=== PATIENT | female | born 1970 | race Caucasian/White ===

== ENCOUNTER 2025-05-21 16:26 | Outpatient (REF) | payer MEDICAID, SELFPAY ==
[2025-05-22 09:14] LABS: Chlamydia pneumoniae PCR Not Detected (Not Detect.); Coronavirus 229E PCR Not Detected (Not Detect.); Coronavirus HKU1 PCR Not Detected (Not Detect.); Coronavirus NL63 PCR Not Detected (Not Detect.); Coronavirus OC43 PCR Not Detected (Not Detect.); RSV PCR Not Detected (Not Detect.); Rhino/Enterovirus PCR Not Detected (Not Detect.)
[2025-05-22 12:16] LABS: Influenza A H1 PCR Not Detected (Not Detect.); Influenza A H1-2009 PCR Not Detected (Not Detect.); Influenza A H3 PCR Not Detected (Not Detect.); SARS-CoV-2 PCR Not Detected (Not Detect.)
== END 2025-05-21 16:27 | disposition home or self-care (01) ==
LOC: HO.CHCLNP 16:26
PROVIDERS: Visit Provider Family Medicine
DX: J06.9 Acute upper respiratory infection, unspecified (principal)
CPT/HCPCS: 87633

== ENCOUNTER 2025-06-07 14:05 | Outpatient (AMB) | payer MEDICAID, SELFPAY ==
--- NOTE | 2025-06-07 14:20 | A.OFFVIS_ITS ---
Intake Visit Reasons: 3m/Med review (set)UA+PVR) Intake Note: 55 year old Female presents today for a 3 month medication review last PVR:35 ml TODAY PVR: Still taking Oxybutynin Allergies No Known Allergies (No Known Allergies*) Allergy (Verified 05/22/25 09:16) HPI Comments Details: 06/07/2025--Ghazal is here for follow-up she has been evaluated for hematuria. Workup was notable for kidney stones, right renal calculi on renal ultrasound. The patient also has overactive bladder symptoms. She is on oxybutynin 15 mg daily. Alternative treatment options have been discussed with the patient including Botox management. 01/08/25--here for office cystoscopy. History of microscopic hematuria, and overactive bladder symptoms Cystoscopy findings: bladder wall thickening, no suspicious bladder lesions visualized Pelvic exam-no significant prolapse noted. No leakage with Valsalva. Results:renal US 01/01/25-- right renal calculi, x2 --3 mm,and 2mm Plan--- Botox injections in the bladder were discussed. I have discussed risks to include hematuria, UTI, urinary retention, need to repeat procedure for sustained efficacy. Patient wants to trial an increase in the oxybutynin. Oxybutynin 15 mg sent to the pharmacy. Follow-up in a few months to re-evaluate urinary symptoms. - Renal stones will be monitored, with no immediate intervention necessary. - Skin irritation to be addressed by using protective measures. 11/09/24--The patient is a 54-year-old female presenting with urinary incontinence and bladder spasms. She has been experiencing nocturnal urinary frequency, around three to four times nightly, accompanied by an urgent need to urinate. Bladder control becomes particularly challenging when she forgets to take her oxybutynin. Despite current management, she continues to experience ur gency and frequent episodes of incontinence. Symptoms such as a sudden urge to urinate with little warning and episodes of urine gushing are prevalent. 07/09/23--Ghazal is a 53 year old female. She has been evaluated and treated in the past by Dr. Banuelos for microscopic hematuria and irritative voiding symptoms. She was prescribed oxybutynin 10 mg XL daily which she states has helped and since she has been off of the medication her bladder leakage has worsened. Pt is on daily HCTZ. She has been off of prophlaxatic abx for over a year and denies UTI symptoms Microscopic hematuria evaluation 2018 Cytology negative Cystoscopy with biopsy negative - patchy cystitis Imaging negative Associated conditions smoking, denies work place exposure Urinary incontinence Some degree of resolution with treatment for recurrent UTI Combination oxybutynin with trimethoprim 2020 Baseline treatment now oxybutynin, Plan: 07/19/23--Oxybutynin 10 mg ER daily. FU one year [facility] Medical History (Updated 05/22/25 @ 09:16 by Nelsy Nettles) Hypercholesterolemia Cervical stenosis (uterine cervix) Fibromyalgia Vitamin D deficiency Stress incontinence Urgency incontinence Surgical History (Updated 05/22/25 @ 09:16 by Nelsy Nettles) History of surgery Office Procedures Post Void Residual Post Residual Void Post Void Residual (PVR): 0 [id number] Void Residual by ultrasound Results AMB Urinalysis, Automated UA Leukoctes 0 Stella/uL Last Edit by Sahara Weiss [facility] on 06/07/25 14:38 UA Nitrite Negative Last Edit by Sahara Weiss [facility] on 06/07/25 14:38 UA Urobilinogen 0.2 mg/dL Last Edit by Sahara Weiss A on 06/07/25 14:3 8 UA Protein 15 mg/dL Last Edit by Sahara Weiss [facility] on 06/07/25 14:38 UA pH 6.5 Last Edit by Sahara Weiss [facility] on 06/07/25 14:38 UA Blood 0 Baron/uL Last Edit by Sahara Weiss [facility] on 06/07/25 14:38 UA Specific [place] 1.015 Last Edit by Sahara Weiss [facility] on 06/07/25 14: 38 UA Ketone Negative Last Edit by Sahara Weiss A on 06/07/25 14:38 UA Bilirubin 0 mg/dL Last Edit by Sahara Weiss [facility] on 06/07/25 14:38 UA Glucose 0 mg/dL Last Edit by Sahara Weiss [facility] on 06/07/25 14:38 Results Reviewed Results Reviewed: Laboratory Last Values Urine pH (Auto) 6.5 06/07/25 14:37 Specific [place] (Auto) 1.015 06/07/25 14:37 Urine Protein (Auto) 15 mg/dL 06/07/25 14:37 Glucose (UA)(Auto) 0 mg/dL 06/07/25 14:37 Urine Ketones (Auto) Negative 06/07/25 14:37 Urine Blood (Auto) 0 Baron/uL 06/07/25 14:37 Urine Nitrite (Auto) Negative 06/07/25 14:37 Urine Bilirubin (Auto) 0 mg/dL 06/07/25 14:37 Urine Urobilinogen (Auto) 0.2 mg/dL 06/07/25 14:37 Leukocyte Esterase (Auto) 0 Stella/uL 06/07/25 14:37 Assessment & Plan Assessment & Plan Orders: Orders AMB Post Void Residual by ultrasound Today N39.41 - Urge incontinence AMB Urinalysis Automated Today Z13.9 - Encounter for screening, unspecified Coding CPT Codes Post Residual Void - PVR CPT Code: [id number] Void Residual by ultrasound ([id number])
--- OUTSIDE RECORDS SUMMARY | 2025-06-07 18:19 | XMS_ITS | Encounter Summary ---
Author Organization [employer] Address [address] [place] [address] Care Team Providers Care Conveyancer Name Role Phone Roxanne Teresa MD Primary Care Provider [phone] Valarie Atkins CNP Primary Care Provider [phone] Reason for Visit * Reason Onset Date Comments Nurse Triage 11/29/2024 Encounter Details Date Type Department Care Team ([facility] st Contact Info) Description 11/29/2024 Telephone [facility] [address] [place] [address] Roxanne Teresa MD [address] [place] [address] Nurse Triage Social History Tobacco Use Types Packs/Day Years Used Date Smoking Tobacco: Some Days Cigarettes Passive Smoke Exposure: Past Smokeless Tobacco: Never Alcohol Use Standard Drinks/Week Comments Not Currently 0 (1 standard drink = 0.6 oz pur e alcohol) Housing Stability Answer Date Recorded What is your housing situation today? I have silvana saucedo 10/11/[address] you li ve. Do you have problems with any of the following? None of the above 10/11/2024 Food Insecurity Answer Date Recorded Within the past 12 months, y ou worried that your food would run out before you got money to buy more: Never True 10/11/2024 Within the past 12 months,th e food you bought just didn't last and you didn't have enough money to get more: Never True Transportation Answer Date Recorded In the past 12 months, has l ack of transportation kept you from medical appts, meetings, work or from getting things needed for daily living? No 10/11/2024 Utilities Answer Date Recorded In the past 12 months, has t he electric, gas, oil or water company threatened to shut off services in your home? No 10/11/2024 Internet Access Answer Date Recorded Internet Access Q1 No 10/11/2024 Internet Access Q2 I do not want or need it 09/20 Comments No Sex and Gender Information Value Date Recorded Sex Assigned at Female 04/04/2024 11:59 AM EDT Legal Sex Female 11:49 AM EDT Gender Identity Female 04/04/2024 11:59 AM EDT Sexual Orientation Choose not to disclose 2023 11:59 AM EDT documented as of this encounter Miscellaneous Notes * Telephone Encounter - Yesenia Babb RN - 11/29/2024 9:10 AM EDT Triage call Pt reports driving to [place] 11/25/24 and started to have moderate low back pain. Pt is concerned that this could indicate a UTI. Pt doesn't have any other symptoms indicating this and hasdx of fibromyalgia so is questioning what is the source of the back pain. Pt has taken muscle relaxer medication as prescribed, aspercream and other topical analgesics as well as tylenol arthritis without relief. Pt denies back injury or heavy lifting. ASK apt in [facility] today at 1120am to rule outUTI. Pt agrees with this disposition. Pt is encouraged to increase liquid intake . Insurance is verified as active prior to booking. Protocol Used: Urinary Symptoms (Adult) Protocol-Based Disposition: See in Office or Video Visit Today or Tomorrow Video visit not offered Positive Triage Question: * Patient wants to be seen * All higher-acuity triage questions were negative Care Advice Discussed: * Reasons To Call Back - Fever occurs - Pain or burning with urination - You become worse * Telephone Encounter - Erik Hugo - 11/29/2024 8:57 AM EDT Symptom: Back Pain - Not From Injury Outcome: Schedule an urgent appointment (within 1 hour) or talk to a nurse or provider soon Reason: Weakness of the groin area Please contact pt at [phone]. documented in this encounter Plan of Treatment Upcoming Encounters Date Type Department Care Team (Late st Contact Info) Description 07/18/2025 9:30 AM EST Office Visit [facility] MED & PEDS [address] [place] [address] Valarie Atkins CNP [address] [place] [address] documented as of this encounter Visit Diagnoses Not on filedocumented in this encounter Care Teams Conveyancer Relationship Specialty Start Date End Date Roxanne Teresa MD [address] [place] [address] PCP - General Family Medicine 10/11/24 04/16/25 Valarie Atkins CNP [address] [place] [address] PCP - General Family Medicine 04/17/25 documented as of this encounter
--- OUTSIDE RECORDS SUMMARY | 2025-06-07 18:19 | XMS_ITS | Encounter Summary ---
Author Organization [employer] Address [address] [place] [address] Care Team Providers Care Appliance Servicer Name Role Phone Valarie Atkins AFUA Primary Care Provider [phone] Encounter Details Date Type Department Care Team ([facility] Contact Info) Description 04/17/2025 Orders Only [facility] MED & PEDS [address] [place], [place] [id number] Roxanne Teresa MD [address] [place] [address] Social History Tobacco Use Types Packs/Day Years Used Date Smoking Tobacco: Some Days Cigarettes Passive Smoke Exposure: Past Smokeless Tobacco: Never Alcohol Use Standard Drinks/Week Comments Not Currently 0 (1 standard drink = 0.6 oz pur e alcohol) Depression Answer Date Recorded Patient Health Questionnaire-9 Score 2 03/30/2025 Patient Health Questionnaire-9 Score 2 03/30/2025 Last PHQ-9: Questionnaire Data Not on file 1 Housing Stability Answer Date Recorded What is [...] off services in your home? No 10/11/2024 Depression Answer Date Recorded Patient Health Questionnaire-2 Score 2 03/30/2025 Internet Access Answer Date Recorded Internet Access [...] AM EDT documented as of this encounter Plan of Treatment Upcoming Encounters Date Type Department Care Team (Late st Contact Info) Description 07/18/2025 9:30 AM EST Office Visit [facility] MED & PEDS [address] [place] [address] Valarie Atkins CNP [address] [place] [address] documented as of this encounter Visit Diagnoses Not on filedocumented in this encounter Additional Health Concerns Assessment Noted Time PHQ-9 Depression Total Score: 2 03/30/20 25 9:05 AM EDT documented as of this encounter Care Teams Appliance Servicer Relationship Specialty Start Date End Date Valarie Atkins CNP [address] [place] [address] PCP - General Family Medicine 04/17/25 documented as of this encounter
--- OUTSIDE RECORDS SUMMARY | 2025-06-07 18:19 | XMS_ITS | Encounter Summary ---
Author Organization [employer] Address [address] [place] [address] Care Team Providers Care Rework Machine Operator Name Role Phone Valarie Atkins AFUA Primary Care Provider [phone] Encounter Details Date Type Department Care Team ([facility] Contact Info) Description 05/23/2025 Results Follow-Up [facility] MED & PEDS [address] [place] [address] Jelly Naranjo MD [address] [place] [address] Respiratory Viral Panel PCR, POCT Rapid Influenza B OSOM, POCT Rapid Influenza A OSOM, POCT Rapid Covid-19 [employer] Social History Tobacco Use Types Packs/Day Years [...] Description 07/18/2025 9:30 AM EST Office Visit [facility] MED & PEDS [address] [place] [address] Valarie Atkins CNP [address] [place] [address] documented as of this encounter Visit Diagnoses Not on filedocumented in this encounter Additional Health Concerns Assessment Noted Time PHQ-9 Depression Total Score: 2 03/30/20 9:05 AM EDT documented as of this encounter Care Teams Rework Machine Operator Relationship Specialty Start Date End Date Valarie Atkins CNP [address] [place] [address] PCP - General Family Medicine 04/17/25 documented as of this encounter
--- OUTSIDE RECORDS SUMMARY | 2025-06-07 18:19 | XMS_ITS | Encounter Summary ---
Author Organization [employer] Address [address] [place] [address] Care Team Providers Care Station Worker Name Role Phone Roxanne Teresa MD Primary Care Provider [phone] Valarie Atkins CNP Primary Care Provider [phone] Reason for Visit * Reason Onset Date Comments Medication Question 04/16/2025 Encounter Details Date Type Department Care Team ([facility] Contact Info) Description 04/16/2025 Telephone [facility] MED & PEDS [address] [place], [place] [phone] Roxanne Teresa MD [address] [place] [address] Medication Question Social History Tobacco Use Types Packs/Day Years [...] encounter Miscellaneous Notes * Telephone Encounter - Toma Cordon RN - 04/17/2025 12:02 PM EDT Called pt regarding new orders from PCP as requested and was unable to reach. Left message to call back. * Telephone Encounter - Roxanne Teresa MD - 04/17/2025 9:05 AM EDT Discontinue Lyrica Duloxetine changed to 60mg daily Pt to be seen by New PCP to discuss further management * Telephone Encounter - Toma Cordon RN - 04/16/2025 2:56 PM EDT Called pt regarding message, spoke to pt. Pt states had a TC appointment with PCP on 03/30 during which they discussed medications. It was not pt's understanding that the Lyrica would be ordered again as in the past it did not work well for her. Pt states before the Lyrica, used Duloxetine with good effect which decreased over time. Pt does not want the Lyrica and wants a higher dose of the Duloxetine. Will task to PCP for recommendations. Also, pt wants to know who her new PCP will be and advised we are in the process of assigning new PCP's. Pt understands and agrees with plan. * Telephone Encounter - Wood Pardo - 04/16/2025 2:18 PM EDT Tc from pt reporting that she was received lyrica as a new medication but was on it 6 years ago. Duloxetine before being on Pregablin and pt feels like it is a step backwards. Contact pt at [phone] documented in this encounter Plan of Treatment Upcoming Encounters Date Type Department Care Team ([facility] st Contact Info) Description 07/18/2025 9:30 AM EST Office Visit [facility] MED & PEDS [address] [place] [address] Valarie Atkins CNP [address] [place] [address] documented as of this encounter Visit Diagnoses Not on filedocumented in this encounter Additional Health Concerns Assessment Noted Time PHQ-9 Depression Total Score: 2 03/30/20 9:05 AM EDT documented as of this encounter Care Teams Station Worker Relationship Specialty Start Date End Date Roxanne Teresa MD [address] [place] [address] PCP - General Family Medicine 10/11/24 04/16/25 Valarie Atkins CNP [address] [place] [address] PCP - General Family Medicine 04/17/25 documented as of this encounter
--- OUTSIDE RECORDS SUMMARY | 2025-06-07 18:19 | XMS_ITS | Clinical Summary ---
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 Active multivitamin with minerals (Centrum) 9-200 mg-mcg tablet split tablet Take 1 tablet by mouth. 1 Active cholecalciferol (Vitamin D-3) 25 MCG (1000 UT) capsule Take by mouth. 1 Active albuterol 108 (90 Base) MCG/ACT inhaler Inhale 2 puffs every 4 (four) hours if needed. 4 Active fluticasone (Flonase) 50 MCG/ACT nasal spray Administer 100 mcg into affected nostril(s) Once per day. 4 Active tiZANidine (Zanaflex) 2 MG tabletIndication s:Fibromyalgia Take 1-2 tablets (2-4 mg) by mouth every 8 (eight) hours if needed for muscle spasms. 30 tablet 5 Active fexofenadine (Radha) 180 MG tablet Take 1 tablet (180 mg) by mouth Once per day. 30 tablet 11 5 10/12/19 26 Active baclofen (Lioresal) 10 MG tabletIndication s:Acute low back pain without sciatica, unspecified back pain laterality Take 1 tablet (10 mg) by mouth 3 times daily. 30 tablet 5 Active diclofenac (Cataflam) 50 MG tablet Take 1 tablet (50 mg) by mouth 3 times daily. 30 tablet 5 Active hydroCHLOROthiaz celine (HYDRODiuril) 25 MG tablet TAKE 1 TABLET BY MOUTH EVERY DAY 90 tablet 5 Active omeprazole (PriLOSEC) [address] capsule TAKE 1 CAPSULE BY MOUTH EVERY DAY 90 capsule 5 Active DULoxetine (Cymbalta) [address] capsule Take 1 capsule (60 mg) by mouth Once per day. Do not crush or chew. 30 capsule 11 5 04/17/20 26 Active lisinopril 10 MG tabletIndication s:Primary hypertension Take 1 tablet (10 mg) by mouth Once per day. 30 tablet 11 5 04/25/20 26 Active betamethasone dipropionate 0.05 % creamIndications :Atopic dermatitis, unspecified type Apply topically 2 times daily. 45 g 05/21/2025 3:44 PM EST 5 Active pregabalin (Lyrica) 50 MG capsuleIndicatio ns:Fibromyalgia Take 1 capsule (50 mg) by mouth 3 times daily. 90 capsule 5 05/21/2025 3:44 PM EST 5 05/15/20 26 Active clotrimazole (Lotrimin) 1 % creamIndications :Tinea cruris Apply topically 2 times daily for 28 days. 30 g 2 5 05/23/20 25 amoxicillin-clav ulanate (Augmentin) 875-125 MG tabletIndication s:Rhinosinusitis Take 1 tablet by mouth 2 times daily for 10 days. 20 tablet 05/21/2025 3:44 PM EST 5 05/31/20 25 guaiFENesin-dext romethorphan (Robitussin DM) 100-10 MG/5ML syrup Take 10 mL by mouth every 6 (six) hours if needed for cough for up to 10 days. 118 mL 05/21/2025 3:44 PM EST 5 05/31/20 25 Active Problems Problem Noted Date Diagnosed Date Dysuria 11/29/2024 Acute low back pain without sciatica 11/29/2024 Fibromyositis 09/18/2024 Class 1 obesity 04/04/2024 GERD (gastroesophageal reflux disease) Assessment & Plan (05/24/2024 6:13 PM EST): Renewed omeprazole 20 mg,. 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 Hepatic steatosis 08/25/2022 Hypertension 01/14/2021 Chronic pruritus 05/27/2020 History of squamous cell carcinoma of skin 01/09 Overview (04/04/2024): SCC 01/06 right knee (in situ) Assessment & Plan (05/24/2024 6:13 PM EST): Referral to derm Anxiety 11/02/2018 Severe obesity (BMI 35.0-35.9 with comorbidity) (CMS/HCC) 01/31/2018 History of tibial fracture 03/31/2017 Overview (04/04/2024): 11/04 left tib fib fx, paola and plate placed Urinary incontinence 03/31/2017 Fibromyalgia 04/16/2016 Overview (04/04/2024): Assessment & Plan (05/24/2024 6:13 PM EST): Pt requesting refill of previously prescribed dose, renewed Will establish with pcp Cervical spinal stenosis 02/19/2016 Overview (03/29/2025): C5-6 C5-6 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 Overview (09/18/2024): No atypia, left Hypercholesterolemia 04/17/2013 Overview (03/29/2025): As of 12/15/21 - declining statin - wants to make serious diet/exercise efforts and recheck in 3 months As of 12/15/21 - declining statin - wants to make serious diet/exercise efforts and recheck in 3 months Preglaucoma 04/14/2012 Choroidal nevus 04/14/2012 Low back pain 05/05/2010 Xanthomatosis 02/21/2010 Encounters Date Type Department Care Team Description 05/23/2025 Results Follow-Up [facility] [address] [place] [address] Jelly Naranjo MD Respiratory Viral Panel PCR, POCT Rapid Influenza B OSOM, POCT Rapid Influenza A OSOM, POCT Rapid Covid-19 BinaxNOW 05/21/2025 2:15 PM EST Office Visit [facility] [address] [place] [address] Jelly Naranjo MD Upper respiratory tract infection, unspecified type (Primary Dx); Rhinosinusitis 05/21/2025 Travel 05/21/2025 Telephone [facility] [address] [place] [address] Valarie Atkins CNP Nurse Triage 05/15/2025 11:15 AM EST Office Visit [facility] [address] [place] [address] Valarie Atkins CNP Primary hypertension (Primary Dx); Fibromyalgia 05/15/2025 Travel 05/14/2025 Telephone [facility] [address] [place] [address] Valarie Atkins CNP chart prep 04/25/2025 11:15 AM EST Office Visit [facility] [address] [place] [address] Valarie Atkins CNP Atopic dermatitis, unspecified type (Primary Dx); Primary hypertension; Tinea cruris; Fibromyalgia 04/25/2025 Travel 04/23/2025 Telephone [facility] [address] [place] [address] Valarie Atkins CNP triage 04/17/2025 Orders Only [facility] [address] [place] [address] Roxanne Teresa MD 04/16/2025 Telephone [facility] [address] [place] [address] Roxanne Teresa MD Medication Question 03/30/2025 9:00 AM EDT Telemedicine [facility] [address] [place] [address] Roxanne Teresa MD Fibromyalgia (Primary Dx); Primary hypertension 03/30/2025 Travel 03/29/2025 Telephone [facility] [address] [place] [address] Roxanne Teresa MD chart prep from Last 3 Months Immunizations Immunization Administration Dates Next Due Hep B, adult 04/12/2019,03/10/2019 Influenza injectable quadriv alent preservative free 04/13/2023,04/04/2022,05/04/2021,2019,03/06/2019 Influenza, IIV3, injectable 03/06/2019 Influenza, Unspecified 04/04/2020 Influenza, seasonal, injecta ble, preservative free 04/13/2023,04/04/2022,05/04/2021,2019,03/06/2019 Pfizer Covid-19 Vaccine 12+ 06/11/2023, 3 Pneumococcal Conjugate PCV 20 10/11/2024 TD (adult), 2 Lf tetanus tox oid, preservative free, adsorbed 08/29/2003 Td (adult), unspecified 08/29/2003 Tdap 10/11/2024,06/29/2011,08/29/2003 Family History Medical History Relation Name Comments Heart attack Brother Diabetes Father Breast cancer Mother's Sister Asthma Sister Relation Name Status Comments Brother Father Mother Alive Mother's Sister Alive Sister Alive Social History Tobacco Use Types Packs/Day Years Used Date Smoking Tobacco: Some Days Cigarettes Passive Smoke Exposure: Past Smokeless Tobacco: Never Tobacco Cessation:Ready to Q uit: Not Asked; Counseling Given: Not Answered Alcohol Use Standard Drinks/Week Comments Not Currently [...] not to disclose 2023 11:59 AM EDT Last Filed Vital Signs Vital Sign Reading Time Taken Comments Blood Pressure 126/78 05/21/2025 2:32 PM EST Pulse 110 05/21/2025 2:32 PM EST Temperature 36.8 C (98.2 F) 05/21/2025 2:32 PM EST Respiratory Rate 20 05/21/2025 2:32 PM EST Oxygen Saturation 98% 05/21/2025 2:32 PM EST Inhaled Oxygen Concentration - - Weight 84.9 kg (187 lb 3.2 oz) 05/21/2025 2:32 P M EST Height 156 cm (5' 1.42 ) 05/21/2025 2:32 PM EST Body Mass Index 34.89 05/21/2025 2:32 PM EST Plan of Treatment Upcoming Encounters Date Type Department Care Team ([facility] st Contact Info) Description 07/18/2025 9:30 AM EST Office Visit [facility] P[facility] [address] [facility] [place] [address] Valarie Atkins, DEPUTY OF COUNTER INTELLIGENCE [address] [place] [address] Health Maintenance Due Date Last Done Comments CT Colonography 1968 Colonoscopy 1968 FIT 1968 HIV Screening 1968 Sigmoidoscopy 1968 Hepatitis C Screening 01/11/1986 Hepatitis A Vaccines (1 of 2 - Risk 2-dose series) 01/11/1987 RSV Patients and Patients Aged 60 years or older (1 - Risk 50-74 years 1-dose series) 01/11/2018 Zoster Vaccines (1 of 2) 01/11/2018 Hepatitis B Vaccines (3 of 3 - 19+ 3-dose series) 09/08/2019 04/12/2019, 03/10/2019 COVID-19 Vaccine (2024- season) 2025 06/11/2023, 06/11/2023, 07/16/2020, Additional history exists Influenza Vaccine (#1) 2025 , 04/13/2023, 04/04/2022, Additional history exists Alcohol/Substance Use Screening 10/11/2025 10/11/2024 SDOH Screening 10/11/2025 10/11/2024 Cervical Cancer Screening 11/29/2025 HPV/Cotest 11/29/2025 11/29/2020 Pap Smear 11/29/2025 11/29/2020 FOBT 02/03/2026 02/03/2025 Depression Screening 03/30/2026 03/30/2025, 03/30/20 25 Disability Screening 03/30/2026 03/30/2025 Tobacco Screening 05/21/2026 05/21/2025 Mammogram 10/12/2026 10/12/2024, 04/2 09/2024, 10/12/2024, Additional history exists Colorectal Cancer Screening 02/04/2028 FIT DNA/Cologuard 02/04/2028 02/03/2025 Lipid Panel 01/08/2030 01/08/2025 DTaP/Tdap/Td Vaccines (4 - Td or Tdap) 10/11/2034 10/11/2024, 06/29/2011, 08/29/2003, Additional history exists Pneumococcal Vaccine: 50+ Years Completed 10/11/2024 HIB Vaccines Aged Out No longer eligi ble based on patient's age to complete this topic HPV Vaccines Aged Out No longer eligi ble based on patient's age to complete this topic IPV Vaccines Aged Out No longer eligi ble based on patient's age to complete this topic Meningococcal B Vaccine Aged Out No l onger eligible based on patient's age to complete this topic Meningococcal Vaccine Aged Out No staci catarina eligible based on patient's age to complete this topic RSV under 20 months Aged Out No longe r eligible based on patient's age to complete this topic Rotavirus Vaccines Aged Out No longer eligible based on patient's age to complete this topic Procedures Procedure Name Priority Date/Time Associated Diagnosis Comments POCT RAPID COVID ANTIGEN Routine 05/21/2025 3:07 PM EST Upper respiratory tract infection, unspecified type POCT INFLUENZA A Routine 05/21/2025 3:07 PM EST Upper respiratory tract infection, unspecified type POCT INFLUENZA B Routine 05/21/2025 3:07 PM EST Upper respiratory tract infection, unspecified type RESPIRATORY VIRAL PANEL PCR Routine 05/21/2025 2:45 PM EST Upper respiratory tract infection, unspecified type LAB COLOGUARD COLON CANCER SCREEN Routine 02/03/2025 9:45 AM EDT Screening for colon cancer LIPID PANEL, STANDARD Routine 01/08/2025 11:03 AM EDT Primary hypertension Hypercholesterolemia HM MAMMOGRAPHY Routine 10/12/2024 4:26 PM EDT HM PAP/HPV Routine 11/29/2020 from Last 3 Months or Most Recently Relevant to Health Maintenance Results * POCT Rapid Covid-19 BinaxNOW (05/21/2025 3:07 PM EST) [facility] Rapid COVID Ag Negative Swab 05/21/2025 3:07 PM EST Jelly Naranjo MD POINT OF CARE TEST ENTER/EDIT ORDERABLES Final Result * POCT Rapid Influenza B OSOM (05/21/2025 3:07 PM EST) [facility] Rapid Influenza B Ag Negative Negative, Indeterminate Swab 05/21/2025 3:07 PM EST Jelly Naranjo MD POINT OF CARE TEST ENTER/EDIT ORDERABLES Final Result * POCT Rapid Influenza A OSOM (05/21/2025 3:07 PM EST) [facility] Rapid Influenza A Ag Negative Negative, Indeterminate Swab Nasopharyngeal structure / Unknown 05/21/2025 3:07 PM EST Result [facility] Jelly Naranjo MD POINT OF CARE TEST ENTER/EDIT ORDERABLES Final Result * (ABNORMAL) Respiratory Viral Panel PCR (05/21/2025 2:45 PM EST) [facility] Adenovirus PCR Not Detected Not Detect. [facility] Bordetella pertussis PCR Not Detected Not Detect. [facility] Comment:Interpret results wi th caution. If B. pertussis isspecifically suspected, additional testing using analternate method is recommended. Bordetella parapertussis PCR Not Detected Not Detect. [facility] Chlamydia pneumoniae PCR Not Detected Not Detect. [facility] Coronavirus 229E PCR Not Detected Not Detect. [facility] Coronavirus HKU1 PCR Not Detected Not Detect. [facility] Coronavirus NL63 PCR Not Detected Not Detect. [facility] Coronavirus OC43 PCR Not Detected Not Detect. [facility] SARS-CoV-2 PCR Not Detected Not Detect. [facility] Comment:SARS-CoV-2 not detec stephen by real-time RT-PCR.Note: If clinical suspicion for Sars-CoV-2 is high, continueto maintain precautions and consider repeat testing.Test results should be interpreted in the context ofclinical findings and other laboratory data.Rare polymorphisms exist that could lead to false-negativeor false-positive results. If results do not match theclinical findings, additional testing should be considered.Results reported to [facility].This test has been authorized by the FDA under the EmergencyUse Authorization (EUA) for use by authorized laboratories. Influenza A PCR Not Detected Not Detect. [facility] Influenza A Subtype H1 Not Detected Not Detect. [facility] Influenza A H1-2009 PCR Not Detected Not Detect. [facility] Influenza A Subtype H3 Not Detected Not Detect. [facility] Influenza B PCR Not Detected Not Detect. [facility] Human metapneumovirus PCR Not Detected Not Detect. [facility] Rhino/Enterovirus PCR Not Detected Not Detect. [facility] Mycoplasma pneumoniae PCR Not Detected Not Detect. [facility] Parainfluenza 1 PCR Not Detected Not Detect. [facility] Parainfluenza 2 PCR Not Detected Not Detect. [facility] Parainfluenza 3 PCR Not Detected Not Detect. [facility] Parainfluenza 4 PCR Detected(A) Not Detect. [facility] RSV PCR Not Detected Not Detect. [facility] Resp Panel NA Note See Note H [facility] Comment:All results must be correlated with clinical findings.Negative results should not be used as the sole basis fordiagnosis, treatment, or other management decisions.A negative result does not exclude the possibility of viralor bacterial infection. Negative results may occur from thepresence of sequence variants in the region targeted by theassay, the presence of inhibitors, an infection caused by anorganism not detected by the panel, or lower respiratorytract infections that are not detected by a nasopharyngealswab specimen. Test results may also be affected byconcurrent antiviral/antibacterial therapy or levels oforganism in the specimen that are below the limit ofdetection for this test.This assay is performed by Multiplexed PCR, utilizing Eved Array. Swab 05/21/2025 2:45 PM EST 05/21/2025 6:51 PM EST us Jelly Naranjo MD LAB BLOOD ORDERABLES Final Re sult [facility] [address] [place] [address] [phone] * Cologuard?? colon cancer screening (02/03/2025 9:45 AM EDT) Cologuard Result Negative Negative 02/10/20 1:07 PM EDT [facility] (CLIA #:[id number]) Comment: The Cologuard (TM) test was performed on this specimen. NEGATIVE TEST RESULT. A negative Cologuard result indicates a low likelihood that a colorectal cancer (CRC) or advanced adenoma (adenomatous polyps with more advanced pre-malignant features) is present. The chance that a person with a negative Cologuard test has a colorectal cancer is less than 1 in 1500 (negative predictive value >99.9%) or has an advanced adenoma is less than 5.3% (negative predictive value 94.7%). These data are based on a prospective cross-sectional study of 10,000 individuals at average risk for colorectal cancer who were screened with both Cologuard and colonoscopy. (Inocente Hearn al, N Engl J Med 2014;370(14):1286- 1297) The normal value (reference range) for this assay is negative. COLOGUARD RE-SCREENING RECOMMENDATION: Periodic colorectal cancer screening is an important part of preventive healthcare for asymptomatic individuals at average risk for colorectal cancer. Following a negative Cologuard result, the [place] [employer] Society and U.S. Multi-Society Task Force screening guidelines recommend a Cologuard re-screening interval of 3 years. References: [place] [employer] Guideline for Colorectal Cancer Screening: https://www.cancer.org/cancer/vlalm-jnzxya-uprrfo/hmjkawhdn-ithqhaves-cbdhrdi/ac s-rec ommendations.html.; Morgan DK, Rojelio GOULD, Naye GUSMAN, Colorectal Cancer Screening: Recommendations for Physicians and Patients from the U.S. Multi-Society Task Force on Colorectal Cancer Screening , Am J Gastroenterology 2017; 112:5886-9262. TEST DESCRIPTION: Composite algorithmic analysis of stool DNA-biomarkers with hemoglobin immunoassay. Quantitative values of individual biomarkers are not reportable and are not associated with individual biomarker result reference ranges. Cologuard is intended for colorectal cancer screening of adults of either sex, 45 years or older, who are at average-risk for colorectal cancer (CRC). Cologuard has been approved for use by the U.S. FDA. The performance of Cologuard was established in a cross sectional study of average-risk adults aged 50-84. Cologuard performance in patients ages 45 to 49 years was estimated by sub-group analysis of near-age groups. Colonoscopies performed for a positive result may find as the most clinically significant lesion: colorectal cancer [4.0%], advanced adenoma (including sessile serrated polyps greater than or equal to 1cm diameter) [20%] or non- advanced adenoma [31%]; or no colorectal neoplasia [45%]. These estimates are derived from a prospective cross-sectional screening study of 10,000 individuals at average risk for colorectal cancer who were screened with both Cologuard and colonoscopy. (Inocente Edmonds. et al, N Engl J Med 2014;370(14):4890-2775.) Cologuard may produce a false negative or false positive result (no colorectal cancer or precancerous polyp present at colonoscopy follow up). A negative Cologuard test result does not guarantee the absence of CRC or advanced adenoma (pre-cancer). The current Cologuard screening interval is every 3 years. ([place] [employer] and U.S. Multi-Society Task Force). Cologuard performance data in a 10,000 patient pivotal study using colonoscopy as the reference method can be accessed at the following location: www.[employer].com/results. Additional description of the Cologuard test process, warnings and precautions can be found at www.[employer].com. Stool specimen (specimen) 02/03/2025 9:45 AM EDT 02/04/2025 10:39 PM EDT us Roxanne Tereas MD LAB MOLECULAR DIAGNOSTICS ORDERA BLES Final Result [facility] (CLIA #:[id number]) [phone] [place] [address], * (ABNORMAL) Lipid Panel, Standard (01/08/2025 11:03 AM EDT) Triglycerides 90 <150 mg/dL [facility] Comment:Desirable Triglyceri de: less than 150 mg/dLBorderline High Triglyceride 150-199 mg/dLHigh Triglyceride: 200-499 mg/dLVery High Triglyceride: greater than or equal to 5OO mg/dL Cholesterol 232(H) <200 mg/dL [facility] Comment:Desirable Cholestero l: less than 200 mg/dLBorderline High Cholesterol: 200-239 mg/dLHigh Cholesterol: greater than 239 mg/dL LDL Cholesterol Calculated 161(H) <100 mg/dL [facility] Comment:Desirable LDL: less than 100 mg/dLNear Optimal/Above Optimal LDL: 110- 129 mg/dLBorderline High LDL: 130-159 mg/dLHigh LDL: 160-189 mg/dLVery High LDL: greater than or equal to 190 mg/dL HDL Cholesterol 53 >40 mg/dL [facility] Comment:Desirable HDL: great er than 40 mg/dL Note: This HDL assay may give artificially low results in patients with liver disease. Blood Venous blood specimen / Unknown 01/08/2025 11:03 AM EDT 01/08/2025 12:57 PM EDT Roxanne Teresa MD LAB BLOOD ORDERABLES Final Resul t [facility] [address], [place] [phone] * Hm Mammography (10/12/2024 4:26 PM EDT) Anatomical Region Laterality Modality Other Jessica Provider HEALTH MAINTENANCE Final Result * HM PAP/HPV (11/29/2020) Pap Smear 1. NILM 1. NILM HPV Not Detected Undetected, Indeterminat e, Quantitative , Not Detected Narrative Aliyah Ivy - 11/29/2020 Results in care everywhere us Historical Provider MD HEALTH MAINTENANCE Final Result from Last 3 Months or Most Recently Relevant to Health Maintenance Insurance [employer] Care Teams Automatic Buffing Wheel Former Relationship Specialty Start Date End Date Valarie Atkins CNP [address] [place] [id number] PCP - General Family Medicine 04/17/25
--- OUTSIDE RECORDS SUMMARY | 2025-06-07 18:19 | XMS_ITS | Encounter Summary ---
Author Organization [employer] Address [address] [facility] [address] [place] [address] Care Team Providers Care Broker In Charge Name Role Phone Roxanne Teresa MD Primary Care Provider [phone] Valarie Atkins CNP Primary Care Provider [phone] Reason for Visit * Reason Onset Date Comments Med Refill 11/29/2024 Encounter Details Date Type Department Care Team ([facility] st Contact Info) Description 11/29/2024 Refill [facility] [address] [place] [address] Roxanne Teresa MD [address] [place] [address] Social History Tobacco Use Types Packs/Day Years [...] Description 07/18/2025 9:30 AM EST Office Visit [facility] MED & PEDS [address] [place] [address] Valarie Atkins CNP [address] [place] [address] documented as of this encounter Visit Diagnoses Not on filedocumented in this encounter Care Teams Broker In Charge Relationship Specialty Start Date End Date Roxanne Teresa MD [address] [place] [address] PCP - General Family Medicine 10/11/24 04/16/25 Valarie Atkins CNP [address] [place] [address] PCP - General Family Medicine 04/17/25 documented as of this encounter
--- OUTSIDE RECORDS SUMMARY | 2025-06-07 18:19 | XMS_ITS | Encounter Summary ---
Author Organization [employer] Address [address] [place] [address] Care Team Providers Care Accounting Specialist Name Role Phone Roxanne Teresa MD Primary Care Provider [phone] Valarie Atkins CNP Primary Care Provider [phone] Encounter Details Date Type Department Care Team ([facility] st Contact Info) Description 10/13/2024 Orders Only [facility] MED & PEDS [address] [place], [place] [phone] ProviderJessica MD Social History Tobacco Use Types Packs/Day Years [...] Upcoming Encounters Date Type Department Care Team ([facility] st Contact Info) Description 07/18/2025 9:30 AM EST Office Visit [facility] [address] [place] [address] Valarie Atkins CNP [address] [place] [address] documented as of this encounter Procedures Procedure Name Priority Date/Time Associated Diagnosis Comments HM MAMMOGRAPHY Routine 10/12/2024 4:26 PM EDT documented in this encounter Results * Hm Mammography (10/12/2024 4:26 PM EDT) Anatomical Region Laterality Modality Other Historical Provider HEALTH MAINTENANCE Final Result documented in this encounter Visit Diagnoses Not on filedocumented in this encounter Care Teams Accounting Specialist Relationship Specialty Start Date End Date Roxanne Teresa MD [address] [place] [address] PCP - General Family Medicine 10/11/24 04/16/25 Valarie Atkins CNP [address] [place] [address] PCP - General Family Medicine 04/17/25 documented as of this encounter
--- OUTSIDE RECORDS SUMMARY | 2025-06-07 18:19 | XMS_ITS | Clinical Summary ---
Author Organization [facility] [address] [place] [address] [place] [phone] Phone Care Team Providers Care Camp Manager Name Role Phone Sakshi Parikh MD Primary Care Provider [phone] Allergies Active Allergy Reactions Criticality Noted Date Comments Gold Keratinate 09/17/2020 Positive patch test Rosin 09/17/2020 Positive patch test Medications ACETAMINOPHEN ORAL Take by mouth. Activ e albuterol HFA (PROAIR HFA ; PROVENTIL HFA ; VENTOLIN HFA) 90 mcg/actuation inhaler Inhale 2 Puffs into the lungs every 4 hours as needed for Cough or Wheezing. 4 Active betamethasone, augmented, (DIPROLENE-AF) 0.05 % cream Apply topically daily. For 2 wks- skip a wk then start again- DERM Active cholecalciferol (VITAMIN D-3) 25 mcg (1,000 unit) tablet Take by mouth. Ac tive DULoxetine (CYMBALTA) [address] capsule Take 2 capsules (120 mg total) by mouth 1 (one) time each day. 3 Active fexofenadine (MOSHE) 180 mg tablet Take 1 tablet (180 mg total) by mouth 1 (one) time each day. 2 Active fluticasone propionate (FLONASE) 50 mcg/actuation nasal spray 2 Sprays by Each Nare route daily. 4 Active multivitamin with minerals (Multiple Vitamin-Mineral s) tablet Take by mouth. Activ e omeprazole (PriLOSEC) [address] capsule Take 1 capsule (20 mg total) by mouth 1 (one) time each day. 4 Active oxyBUTYnin XL (DITROPAN-XL) 10 mg 24 hr tablet Take 1 tablet (10 mg total) by mouth 1 (one) time each day. 1 Active tiZANidine (ZANAFLEX) 2 mg tablet Take 1-2 Tablets by mouth every 8 hours as needed (muscle pain/spasm). 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 Overview (06/08/2024): No atypia, left Hypercholesterolemia 04/17/2013 Overview (06/08/2024): As of 12/15/21 - declining statin - wants to make serious diet/exercise efforts and recheck in 3 months Choroidal nevus 04/14/2012 Preglaucoma 04/14/2012 Low back pain 05/05/2010 Xanthomatosis 02/21/2010 Immunizations Immunization Administration Dates Next Due Hepatitis B (Aggzzws-L-Xtbyf , Recombivax HB-Adult) 19yo and older 04/12/2019,03/10/2019 Influenza trivalent, 0.5mL, preservative free (Fluarix; FluLaval; Fluzone) ages 6mo and older (Afluria) 3 years and older 04/13/2023,04/04/2022,05/04/2021,2019,03/06/2019 Influenza, Unspecified 04/04/2020 Pfizer (ages 12 & older) Biv alent, COVID-19 06/11/2023 Td Tetanus diptheria (Tdvax) 7yo and older 08/29/2003 Tdap Tetanus diptheria acell ular pertussis (Boostrix; Adacel) 7yo and older 06/29/2011 Surgical History Surgery Date Site/Laterality Comments OTHER SURGICAL HISTORY 08/2018 PROCEDURE: MAMMOGRAM WISDOM TOOTH EXTRACTION 12/2009 PROCEDURE: HISTORICAL WISDOM TEETH EXTRACTION; COMMENT: 3 out; hx some parotid swelling COLONOSCOPY 07/15/2012 PROCEDURE: HISTORICAL COLONOSCOPY; COMMENT: normal; repeat in 10 yrs BREAST BIOPSY 2015 Left PROCEDURE: BX BREAST; PERC NEEDLE CORE W/IMAG GUID; COMMENT: lt breast bx-benign OTHER SURGICAL HISTORY PROCEDURE: HISTORICAL SQUAMOUS CELL CA; COMMENT: SCC 01/06 right knee (in situ) CHOLECYSTECTOMY 04/2022 PROCEDURE: HISTORICAL CHOLECYSTECTOMY Medical History Medical History Date Comments Pyelonephritis, unspecified 1993 DX:P yelonephritis, unspecified Allergic rhinitis due to other allergen 02/21/2010 DX:Allergic rhinitis due to other allergen Historical Medical DX 02/21/2010 DX:Xanthel asma Low back pain 05/05/2010 DX:Low back pain Preglaucoma 04/14/2012 DX:Preglaucoma Retinal freckle 04/14/2012 DX:Retinal freck le Hypercholesterolemia 04/17/2013 DX:Hypercho lesterolemia Cervical spinal stenosis 02/19/2016 DX:Cerv ical spinal stenosis; COMMENT: C5-6 History of tibial fracture 03/31/2017 DX:Hi story of tibial fracture; COMMENT: 11/04 tib fib fx, paola and plate placed Urinary incontinence 03/31/2017 DX:Urinary incontinence Anxiety 11/02/2018 DX:Anxiety History of squamous cell car cinoma of skin 01/09/2019 DX:History of squamous cell carcinoma of skin; COMMENT: SCC 01/06 right knee (in situ) Itching 05/27/2020 DX:Itching Vitamin D deficiency 06/23/2016 DX:Vitamin D deficiency GERD (gastroesophageal reflux disease) 10/18/2023 DX:GERD (gastroesophageal reflux disease) Hypertension 01/14/2021 Family History Medical History Relation Name Comments Breast cancer Aunt m aunt epilepsy Heart attack Brother Other: epilepsy Daughter Other: peripheral vascular disease Father diabetes, arthritis Lung cancer Maternal Grandmother diabete s CABG Mother diabetes, arthr itis Diabetes Paternal Grandfather Asthma Sister Other: epilepsy Son Relation Name Status Comments Aunt m aunt Alive Brother Daughter Father Maternal Grandmother Mother Paternal Grandfather Sister Son Social History Tobacco Use Types Packs/Day Years Used Date Smoking Tobacco: Every Day Cigarettes Smokeless Tobacco: Never Alcohol Use Standard Drinks/Week Comments Not Currently 0 (1 standard drink = 0.6 oz pur e alcohol) Comments No Sex and Gender Information Value Date Recorded Sex Assigned at Not on file Legal Sex Female 1:30 PM EST Gender Identity Not on file Sexual Orientation Not on file Obstetrics History Para Term AB IAB SAB Ectopic Multiple Livin g Live Births 3 3 3 3 Date Outcome GA Total Labor Labor/2nd/3rd Weight Sex Type Anes PTL Enedina A1 A5 Name Clin Term Term Term Last Filed Vital Signs Vital Sign Reading Time Taken Comments Blood Pressure 120/84 12/13/2023 3:53 PM EDT Pulse 76 12/13/2023 3:53 PM EDT Temperature - - Respiratory Rate - - Oxygen Saturation 97% 05/12/2023 8:44 AM EST @ rest on R.A. Inhaled Oxygen Concentration - - Weight 83.9 kg (185 lb) 12/13/2023 3:53 PM EDT Height 157.5 cm (5' 2 ) 12/13/2023 3:53 PM EDT Body Mass Index 33.84 12/13/2023 3:53 PM EDT Plan of Treatment Upcoming Encounters Date Type Department Care Team (Late st Contact Info) Description 10/17/2025 9:40 AM EDT Appointment Radiology Department [address] [phone] Health Maintenance Due Date Last Done Comments RSV Immunization Adult Patients (1 - Risk 50-74 years 1-dose series) 01/11/2018 Zoster Vaccines (1 of 2) 01/11/2018 Hepatitis B Vaccines (3 of 3 - 19+ 3-dose series) 09/08/2019 04/12/2019, 03/10/2019 HIV Screening 05/30/2022 Social Influencers of Health Screening 05/30/2022 Depression Screening 06/21/2024 Hypertension/CHF/CAD Annual BMP Blood Test 07/08/2024 07/08/2023 COVID-19 Vaccine (4 - 2024- season) 2025 06/11/2023, 07/16/2020, 06/25/2020 Influenza Vaccine (#1) 2025 , 04/04/2022, 05/04/2021, Additional history exists Cervical Cancer Screening: HPV 11/29/2025 11/29/2020 Breast Cancer Screening 10/12/2026 10/13/19 25, 10/06/2023, 09/28/2022, Additional history exists Cholesterol Screening (Lipid Panel) 07/08/2028 07/08/2023 Colorectal Cancer Screening: Colonoscopy 10/22/2032 10/22/2022 DTaP,Tdap,and Td Vaccines (4 - Td or Tdap) 10/11/2034 10/11/2024, 06/29/2011, 08/29/2003 Hepatitis C Screening Completed 12/04/2021 Pneumococcal Vaccine: 50+ Years Completed 10/11/2024 HIB Vaccines Aged Out No longer eligi ble based on patient's age to complete this topic HPV Vaccines Aged Out No longer eligi ble based on patient's age to complete this topic Hepatitis A Vaccines Aged Out No long er eligible based on patient's age to complete this topic IPV Vaccines Aged Out No longer eligi ble based on patient's age to complete this topic MMR Vaccines Aged Out No longer eligi ble based on patient's age to complete this topic Meningococcal ACWY Vaccine Aged Out N o longer eligible based on patient's age to complete this topic Meningococcal B Vaccine Aged Out No l onger eligible based on patient's age to complete this topic RSV Immunization Patients Under 20 months Aged Out No longer eligible based on patient's age to complete this topic Varicella Vaccines Aged Out No longer eligible based on patient's age to complete this topic Procedures Procedure Name Priority Date/Time Associated Diagnosis Comments MG MAMMO DIGITAL SCREENING W YOSEPH BILAT Routine 10/12/2024 10:50 AM EDT Encounter for screening mammogram for breast cancer ANNUAL BMP BLOOD TEST Routine 07/08/2023 LIPID PANEL Routine 07/08/2023 COLONOSCOPY Routine 10/22/2022 HEPATITIS C SCREENING Routine 12/04/2021 HPV Routine 11/29/2020 from Last 3 Months or Most Recently Relevant to Health Maintenance Results * MG Mammo Digital Screening w Yoseph bilat (10/12/2024 10:50 AM EDT) Anatomical Region Laterality Modality Breast Bilateral Mammography 10/13/2024 11:2 1 AM EDT Impressions 10/13/2024 11:27 AM EDT 1. No mammographic evidence of malignancy 2. Scattered fibroglandular tissue BI-RADS CATEGORY: 2 - BENIGN RECOMMENDATION: Screening bilateral mammogram is recommended in 1 year. Mammo Location: [facility], [address] [place] [address], [id number], . -------- FINAL REPORT -------- Dictated By: Aram Santillan Dictated Date: 10/13/2024 11:21 ET Assigned Physician: Aram Santillan Reviewed and Electronically Signed By: Aram Santillan Signed Date: 10/13/2024 11:27 ET Workstation ID: [id number] Transcribed By: Self Edit Transcribed Date: 10/13/2024 11:21 ET Narrative 10/13/2024 11:27 AM EDT A BILATERAL DIGITAL 3D SCREENING MAMMOGRAPHY HISTORY: Routine screening. Family history of breast cancer in aunt COMPARISON: Multiple priors dating back to 09/13/2020 Technique: Bilateral full field digital mammography (3D) was performed using standard CC and MLO projections CAD was used to evaluate this mammogram. FINDINGS: Right: No suspicious masses, groups of microcalcification or areas of architectural distortion identified. Stable typically benign parenchymal asymmetries. Left: No suspicious masses, groups of microcalcification or areas of architectural distortion identified. Stable typically benign parenchymal asymmetries. Lateral breast biopsy markers at middle depth. BREAST DENSITY: B - There are scattered areas of fibroglandular density. Procedure Note Aram Santillan MD - 04/25/2025 A BILATERAL DIGITAL 3D SCREENING MAMMOGRAPHY HISTORY: Routine screening. Family history of breast cancer in aunt COMPARISON: Multiple priors dating back to 09/13/2020 Technique: Bilateral full field digital mammography (3D) was performedusing standard CC and MLO projections CAD was used to evaluate this mammogram. FINDINGS: Right: No suspicious masses, groups of microcalcification or areas ofarchitectural distortion identified. Stable typically benign parenchymalasymmetries. Left: No suspicious masses, groups of microcalcification or areas ofarchitectural distortion identified. Stable typically benign parenchymalasymmetries. Lateral breast biopsy markers at middle depth. BREAST DENSITY: B - There are scattered areas of fibroglandular density. IMPRESSION: 1. No mammographic evidence of malignancy 2. Scattered fibroglandular tissue BI-RADS CATEGORY: 2 - BENIGN RECOMMENDATION: Screening bilateral mammogram is recommended in 1 year. Mammo Location: [facility], [address] [place] [address], [id number], . -------- FINAL REPORT -------- Dictated By: Aram Santillan Dictated Date: 10/13/2024 11:21 ET Assigned Physician: Aram Santillan Reviewed and Electronically Signed By: Aram Santillan Signed Date: 10/13/2024 11:27 ET Workstation ID: [id number] Transcribed By: Self Edit Transcribed Date: 10/13/2024 11:21 ET Sakshi Parikh MD IM BI PROCEDURES Final Resul t * Annual BMP Blood Test (07/08/2023) Pathologist [facility] Annual BMP Blood Test abstracted Historical Provider HEALTH MAINTENANCE Final Result * (ABNORMAL) Lipid panel (07/08/2023) Pathologist [facility] LDL/HDL Ratio 4 0 - 4 Triglycerides 116 0 - 150 mg/dL Cholesterol 233(A) 0 - 200 mg/dL HDL 56 >=40 mg/dL LDL Cholesterol 154(A) 0 - 100 mg/dL Blood Venous blood specimen / Unknown Historical Provider LAB BLOOD ORDERABLES [place] l Result * Colonoscopy (10/22/2022) Colonoscopy abnormal, abstracted Anatomical Region Laterality Modality Other Historical Provider HEALTH MAINTENANCE Final Result * Hepatitis C Screening (12/04/2021) Pathologist [facility] Hepatitis C Screening abstracted [facility] Provider HEALTH MAINTENANCE Final Result * Cervical Cancer Screening: HPV (11/29/2020) Pathologist [facility] Cervical Cancer Screening: HPV negative, abstracted Historical Provider HEALTH MAINTENANCE Final Result from Last 3 Months or Most Recently Relevant to Health Maintenance Insurance MEDICAID - [place] Care Teams Camp Manager Relationship Specialty Start Date End Date Sakshi Parikh MD [address] [place] [phone] PCP - General Internal Medicine 09/21/24
== END 2025-06-07 15:07 | disposition home or self-care (01) ==
LOC: HO.HUSH 14:06
PROVIDERS: Visit Provider Urology
DX: Z13.9 Encounter for screening, unspecified (principal)

== ENCOUNTER → 2025-06-07 14:05 | Outpatient (BNVA) | payer MEDICAID, SELFPAY | PROVIDERS: Visit Provider Urology | DX: N39.41 Urge incontinence (principal) | CPT/HCPCS: 51798; 81003 ==